=== PATIENT | male | born 1960 | race Caucasian/White ===

== ENCOUNTER 2017-12-03 07:02 | Emergency (ER) | payer MEDICAID ==
--- NOTE | 2017-12-03 07:06 | EDM.PDOC ---
ED HPI GENERAL MEDICAL PROBLEM - General Stated Complaint: STOMACH PAIN Time Seen by Provider: 12/03/17 07:30 - History of Present Illness INITIAL COMMENTS - FREE TEXT/NARRATIVE: HISTORY AND PHYSICAL: History of present illness: The patient is a 57-year-old male who presents with abdominal pain who was seen here on November 05 in our emergency department and had a CT scan of his abdomen and pelvis as well as a surgical consult. At that time the CT revealed multiple omental and mesenteric masses consistent with a metastatic process and focal wall thickening within the sigmoid colon which was suspicious for a neoplastic process. The patient was seen by Dr. Delong here in the emergency department and she emphasized that the patient needed to follow-up with her or one of the other surgeons in our clinic for a diagnostic colonoscopy. Patient states that he had a EGD and colonoscopy performed and [facility] at the [facility] and they told him he did not have colon cancer but that he needed to get a biopsy of one of these masses and that is scheduled for December 18. The patient said that he is been feeling fine and 5 days ago he started having diffuse abdominal pain all over as well as small episodes of watery diarrhea 5- 6 times a day which is not black or bloody. The patient says he has not had fevers nausea vomiting cough runny nose or chest pain. After speaking with him he says that he is only here because he wants the antiacid that he got when he was here the last time, Protonix, because he feels that the acids are causing him to have the pain. The patient tells me he did take an Ex-Lax yesterday, which is confusing as the patient has been having these loose stools and diarrhea, and he thinks that that may have caused increased pain. The patient says that he is in a treatment plan with the [facility] and he wants no further intervention other than the Protonix. Review of systems: As per history of present illness and below otherwise all systems reviewed and negative. Past medical history: As per history of present illness and as reviewed below otherwise noncontributory. Surgical history: As per history of present illness and as reviewed below otherwise noncontributory. Social history: No reported history of drug or alcohol abuse. Family history: As per history of present illness and as reviewed below otherwise noncontributory. Physical exam: General: Well-developed well-nourished man who is nontoxic and vital signs are noted by me. HEENT: Atraumatic, normocephalic, negative for conjunctival pallor or scleral icterus, mucous membranes moist, throat clear, neck supple, nontender, trachea midline. Lungs: Clear to auscultation, breath sounds equal bilaterally, chest nontender. Heart: S1S2, regular rhythm and tachycardic rate on my evaluation slightly no overt murmurs Abdomen: Soft, nondistended, nontender. Negative for masses or hepatosplenomegaly. NABS Pelvis: Stable nontender. Genitourinary: Deferred. Rectal: Deferred. Extremities: Atraumatic, negative for cords or calf pain. Neurovascular unremarkable. Neuro: Awake, alert, oriented. Cranial nerves II through XII unremarkable. Cerebellum unremarkable. Motor and sensory unremarkable throughout. Exam nonfocal. Diagnostics: Patient refuses all testing here in the ED Therapeutics: None As stated above the patient does not want any evaluation as he feels he is under care at the cancer center despite his return of this abdominal pain and diarrhea. He is very adamant about only getting Protonix which she received last time and which I'm happy to prescribe. The patient is aware of his vital signs including tachycardia and hypertension and is not concerned about that. He says he has a history of hypertension and he doesn't take medications for it. I've advised to keep his appointments for follow-up and to return here as needed. Impression: Abdominal pain Definitive disposition and diagnosis as appropriate pending reevaluation and review of above. - Related Data Allergies Allergy/AdvReac Type Severity Reaction Status Date / Time No Known Allergies Allergy Verified 12/03/17 07:29 Home Meds: Home Meds . [No Known Home Meds] 12/03/17 [History] Past Medical History HEENT History: Reports: Allergic Rhinitis, Other (See Below) Other HEENT History: chronic sinus congestion Cardiovascular History: Reports: Hypertension Respiratory History: Reports: None Gastrointestinal History: Reports: Diverticulosis Genitourinary History: Reports: None Musculoskeletal History: Reports: Back Pain, Chronic Neurological History: Reports: None Psychiatric History: Reports: None Endocrine/Metabolic History: Reports: None Hematologic History: Reports: None Oncologic (Cancer) History: Reports: None Dermatologic History: Reports: None - Infectious Disease History Infectious Disease History: Reports: None - Past Surgical History Head Surgeries/Procedures: Reports: None Endocrine Surgical History: Reports: Other (See Below) Other Endocrine Surgeries/Procedures: splenectomy Musculoskeletal Surgical History: Reports: Other (See Below) Other Musculoskeletal Surgeries/Procedures:: lumbar surgery Social & Family History - Family History Family Medical History: Noncontributory - Caffeine Use Caffeine Use: Reports: Coffee, Soda Other Caffeine Use: lots of soda ED ROS GENERAL - Review of Systems Review Of Systems: ROS reveals no pertinent complaints other than HPI. ED EXAM, GENERAL - Physical Exam Exam: See Below (See dictation) Course - Vital Signs Last Recorded V/S: Last Vital Signs Temp 35.8 C 12/03/17 07:29 Pulse 120 H 12/03/17 07:29 Resp 16 12/03/17 07:29 BP 149/106 H 12/03/17 07:29 Pulse Ox 99 12/03/17 07:29 Departure - Departure Time of Disposition: 07:42 Disposition: Home, Self-Care 01 Condition: Good Clinical Impression: Abdominal pain Qualifiers: Abdominal location: generalized Qualified Code(s): R10.84 - Generalized abdominal pain - Discharge Information Additional Instructions: The following information is given to patients seen in the emergency department who are being discharged to home. This information is to outline your options for follow-up care. We provide all patients seen in our emergency department with a follow-up referral. The need for follow-up, as well as the timing and circumstances, are variable depending upon the specifics of your emergency department visit. If you don't have a primary care physician on staff, we will provide you with a referral. We always advise you to contact your personal physician following an emergency department visit to inform them of the circumstance of the visit and for follow-up with them and/or the need for any referrals to a consulting specialist. The emergency department will also refer you to a specialist when appropriate. This referral assures that you have the opportunity for followup care with a specialist. All of these measure are taken in an effort to provide you with optimal care, which includes your followup. Under all circumstances we always encourage you to contact your private physician who remains a resource for coordinating your care. When calling for followup care, please make the office aware that this follow-up is from your recent emergency room visit. If for any reason you are refused follow-up, please contact the [facility] emergency department at and ask to speak to the emergency department charge nurse. [facility]- Internal Medicine and Family [address] [id number] Please keep your appointments for further testing and evaluation of your ongoing problem. Use Protonix as directed and return to ER as needed and as discussed.
== END 2017-12-03 07:50 | disposition home or self-care (01) ==
LOC: MW.ED 07:02
DX: R10.84 Generalized abdominal pain (principal); I10 Essential (primary) hypertension; F17.210 Nicotine dependence, cigarettes, uncomplicated
CPT/HCPCS: 99281; 99282